=== PATIENT | male | born 1985 ===

== ENCOUNTER 2022-03-28 16:22 | Emergency (ER) | payer SELFPAY ==
[2022-03-28 17:20] LABS: BLOOD UREA NITROGEN,BUN 10 mg/dL (7.0-18.0); CARBON DIOXIDE,CO2 23.4 mmol/L (21.0-32.0); CHLORIDE,CL 104 mmol/L (98-107); GLUCOSE RANDOM 101 mg/dL (74-106); POTASSIUM,K 3.5 mmol/L (3.5-5.1); SODIUM,NA 142 mmol/L (136-148)
[2022-03-28 17:21] LABS: ESTIMATED GFR 67 mL/min (>60)
== END 2022-03-28 19:43 | disposition home or self-care (01) ==
LOC: MW.ED 16:22
DX: R56.9 Unspecified convulsions (principal); R00.0 Tachycardia, unspecified
CPT/HCPCS: 36415; 70450; 71045; 80053; 80305; 80307; 81003; 82550; 83735; 84443; 84484; 85025; 93005; 96365; 99285; J1953

== ENCOUNTER 2022-07-11 21:20 | Emergency (ER) | payer SELFPAY | END 2022-07-11 22:30 | disposition home or self-care (01) | LOC: MW.ED 21:20 | DX: S69.92XA Unspecified injury of left wrist, hand and finger(s), initial encounter (principal); W19.XXXA Unspecified fall, initial encounter | CPT/HCPCS: 73130-26-LT; 73130-LT; 99283 ==

== ENCOUNTER 2023-10-02 16:28 | Emergency (ER) | payer SELFPAY ==
[2023-10-02 17:00] LABS: BASOPHILS ABSOLUTE AUTO 0.02 K/uL (0.00-0.20); BASOPHILS PERCENT AUTO 0.3 % (0.0-1.0); EOSINOPHILS ABSOLUTE AUTO 0.09 K/uL (0.00-0.45); EOSINOPHILS PERCENT AUTO 1.5 % (0.0-6.0); HEMATOCRIT 46.7 % (42.0-52.0); HEMOGLOBIN 16.6 g/dL (14.0-18.0); IMMATURE GRAN ABSOLUTE AUTO 0.01 K/uL (0.00-0.05); IMMATURE GRAN PERCENT AUTO 0.2 % (0.0-0.4); LYMPHOCYTES ABSOLUTE AUTO 1.35 K/uL (1.00-4.80); LYMPHOCYTES PERCENT AUTO 22.5 % (24.0-44.0); MEAN CORPUSCULAR HGB CONC 35.5 g/dL (32.0-36.0); MEAN CORPUSCULAR VOLUME 87.1 fL (83.0-99.0); MEAN PLATELET VOLUME 9.9 fL (9.4-12.4); MONOCYTES ABSOLUTE AUTO 0.54 K/uL (0.00-0.80); NEUTROPHILS PERCENT AUTO 66.5 % (41.0-71.0); PLATELET COUNT,PLT 237 K/uL (150-400); RED BLOOD CELL COUNT 5.36 M/uL (4.52-5.90); WHITE BLOOD CELL COUNT,WBC 6.01 K/uL (3.9-11.3)
[2023-10-02 17:31] LABS: A/G RATIO 1.2 (0.9-1.6); ALBUMIN 3.9 g/dL (3.4-5.0); BILIRUBIN TOTAL 0.5 mg/dL (0.2-1.0); CALCIUM 9.1 mg/dL (8.5-10.1); CARBON DIOXIDE,CO2 29.6 mmol/L (21.0-32.0); CREATININE 1.4 mg/dL (0.8-1.3); EST CRCL DRUG DOSING (CG) 67.54 mL/min; POTASSIUM,K 4.2 mmol/L (3.5-5.1); PROTEIN TOTAL,TP 7.2 g/dL (6.4-8.2)
== END 2023-10-02 18:09 | disposition home or self-care (01) ==
LOC: MW.ED 16:28
DX: T75.4XXA Electrocution, initial encounter (principal); Z79.899 Other long term (current) drug therapy; Z75.8 Other problems related to medical facilities and other health care; W86.0XXA Exposure to domestic wiring and appliances, initial encounter
CPT/HCPCS: 36415; 71046; 71046-26; 80053; 82550; 84484; 85025; 93005; 93010; 99282; 99285

== ENCOUNTER 2024-03-22 17:29 | Emergency (ER) | payer SELFPAY ==
[2024-03-22 17:55] LABS: BASOPHILS ABSOLUTE AUTO 0.03 K/uL (0.00-0.20); BASOPHILS PERCENT AUTO 0.4 % (0.0-1.0); EOSINOPHILS ABSOLUTE AUTO 0.09 K/uL (0.00-0.45); EOSINOPHILS PERCENT AUTO 1.2 % (0.0-6.0); HEMATOCRIT 48.9 % (42.0-52.0); HEMOGLOBIN 17.2 g/dL (14.0-18.0); IMMATURE GRAN ABSOLUTE AUTO 0.01 K/uL (0.00-0.05); IMMATURE GRAN PERCENT AUTO 0.1 % (0.0-0.4); LYMPHOCYTES ABSOLUTE AUTO 1.46 K/uL (1.00-4.80); LYMPHOCYTES PERCENT AUTO 19.4 % (24.0-44.0); MEAN CORPUSCULAR HEMOGLOBIN 31.3 pg (28.0-32.0); MEAN CORPUSCULAR HGB CONC 35.2 g/dL (32.0-36.0); MEAN CORPUSCULAR VOLUME 88.9 fL (83.0-99.0); MEAN PLATELET VOLUME 9.6 fL (9.4-12.4); MONOCYTES ABSOLUTE AUTO 0.56 K/uL (0.00-0.80); MONOCYTES PERCENT AUTO 7.4 % (0.0-8.0); NEUTROPHILS ABSOLUTE AUTO 5.39 K/uL (1.80-7.70); NEUTROPHILS PERCENT AUTO 71.5 % (41.0-71.0); PLATELET COUNT,PLT 228 K/uL (150-400); WHITE BLOOD CELL COUNT,WBC 7.54 K/uL (3.9-11.3)
[2024-03-22 18:34] LABS: A/G RATIO 1.7 (0.9-1.6); ALBUMIN 4.5 g/dL (3.4-5.0); BILIRUBIN TOTAL 0.6 mg/dL (0.2-1.0); CALCIUM 9.6 mg/dL (8.5-10.1); CARBON DIOXIDE,CO2 27.4 mmol/L (21.0-32.0); CREATININE 1.1 mg/dL (0.8-1.3); EST CRCL DRUG DOSING (CG) 85.13 mL/min; POTASSIUM,K 4.3 mmol/L (3.5-5.1); PROTEIN TOTAL,TP 7.2 g/dL (6.4-8.2)
[2024-03-22] MEDS: Dexamethasone 4 MG Tab PO ONE (18:34)
[2024-03-22] MEDS: Acetaminophen 500 MG Tab PO ONE (18:35)
[2024-03-22] MEDS: Ketorolac 30 MG/ML SDV IM ONE (18:35)
[2024-03-22 18:44] LABS: MAGNESIUM 1.8 mg/dL (1.8-2.4)
== END 2024-03-22 19:20 | disposition home or self-care (01) ==
LOC: MW.ED 17:29
DX: R09.1 Pleurisy (principal); R07.81 Pleurodynia; Z79.899 Other long term (current) drug therapy
CPT/HCPCS: 36415; 71045; 80053; 83690; 83735; 83880; 84484; 85025; 93005; 96372; 99285; A9270; J1885; J8540

== ENCOUNTER 2024-07-09 11:29 | Emergency (ER) | payer BC ==
[2024-07-09] MEDS: Ibuprofen 800 MG Tab PO STA (14:18)
[2024-07-09] MEDS: Acetaminophen 500 MG Tab PO STA (14:19)
== END 2024-07-09 15:50 | disposition home or self-care (01) ==
LOC: MW.ED 11:29
DX: S09.93XA Unspecified injury of face, initial encounter (principal); F17.210 Nicotine dependence, cigarettes, uncomplicated; Z79.899 Other long term (current) drug therapy; Z75.8 Other problems related to medical facilities and other health care; W22.8XXA Striking against or struck by other objects, initial encounter; Y99.0 Civilian activity done for income or pay
CPT/HCPCS: 70486; 99283; A9270